=== PATIENT | female | born 1945 | race Caucasian/White ===

== ENCOUNTER 2016-12-04 01:50 | Emergency (ER) | payer OTHER ==
[~2016-12-04] VITALS: Ht 157.5 cm; Wt 95.4 kg
[~2016-12-04 01:50] MED LIST: ALEVE220 M2 PO; Aspirin E.C. PO; LYRICA100 MG PO; MOTRIN400 MG PO; NOHOMEMEDS; VICODIN,LORT1 TABLET PO
[2016-12-04] MEDS ORDERED: MUCINEX D ER T1 EACH PO (02:43)
[2016-12-04] MEDS ORDERED: FLONASE16 G1 BOTH NARES (02:43)
[2016-12-04] MEDS ORDERED: ANTIVERT25 MG PO (02:45)
[2016-12-04 03:02] VITALS: BP 137/94
== END 2016-12-04 03:03 | disposition home or self-care (01) ==
LOC: EXP 01:50 → EME 01:50 → EXP 03:03
DX: H65.93 Unspecified nonsuppurative otitis media, bilateral (principal); J30.9 Allergic rhinitis, unspecified; Z88.5 Allergy status to narcotic agent
CPT/HCPCS: 99281; 99284

== ENCOUNTER 2017-10-17 10:42 | Emergency (ER) | payer OTHER ==
[~2017-10-17] VITALS: Ht 157.5 cm; Wt 102.7 kg
[~2017-10-17 10:42] MED LIST changes: +ANTIVERT25 MG PO; +FLONASE16 G1 BOTH NARES; +MUCINEX D ER T1 EACH PO
[2017-10-17] MEDS ORDERED: VALACYCLOVIR1000 MG PO (15:26)
[2017-10-17 18:13] VITALS: BP 140/70
== END 2017-10-17 18:15 | disposition home or self-care (01) ==
LOC: EME 10:42
DX: M25.572 Pain in left ankle and joints of left foot (principal); B02.9 Zoster without complications; M79.662 Pain in left lower leg; R60.0 Localized edema; M19.90 Unspecified osteoarthritis, unspecified site; F32.9 Major depressive disorder, single episode, unspecified; F41.9 Anxiety disorder, unspecified; Z88.5 Allergy status to narcotic agent
CPT/HCPCS: 93971; 99281; 99283